=== PATIENT | male | born 1975 ===

== ENCOUNTER 2018-03-14 11:43 | Emergency (ER) | payer SELFPAY ==
[2018-03-14 11:53] VITALS: BP 143/88
[2018-03-14] MEDS ORDERED: Tetan/Diph/Pertus SYR(Tdap)* 0.5 ML SYR(BOOSTRIX) use SYR IM ONE (12:02)
--- NOTE | 2018-03-14 12:02 | UC ---
Laceration HPI - HPI Summary HPI Summary: 42 yo male presents with right middle finger laceration sustained about 30min [employer] while at work. 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 Unsure date of last tetanus. Able to move finger without difficulty. Mild pain. - History Of Current Complaint Chief Complaint: UCLaceration Stated Complaint: FINGER INJURY Time Seen by Provider: 03/14/18 12:02 Hx Obtained From: Patient Laceration Location: Finger Mechanism Of Injury: Blunt Trauma Onset/Duration: Sudden Onset Severity: Mild Pain Intensity: 1 Pain Scale Used: 0-10 Numeric Related History: Occupational Injury - Allergies/Home Medications Allergies/Adverse Reactions: Allergies Allergy/AdvReac Type Severity Reaction Status Date / Time iodine Allergy Hives Verified 03/14/18 11:54 Home Medications: Home Medications NK [No Home Medications Reported] 03/14/18 [History Confirmed 03/14/18] PMH/Surg Hx/FS Hx/Imm Hx - Additional Past Medical History Additional PMH: None Previously Healthy: Yes - Surgical History Surgical History: Yes Surgery Procedure, Year, and Place: appy,septal defect - Family History Known Family History: Positive: None - Social History Occupation: Employed Full-time Lives: With Family Alcohol Use: Rare Substance Use Type: None Smoking Status (MU): Never Smoked Tobacco Review of Systems Constitutional: Negative Skin: Other - Laceration right middle finger Respiratory: Negative Cardiovascular: Negative Neurovascular: Negative Musculoskeletal: Negative Neurological: Negative Psychological: Negative All Other Systems Reviewed And Are Negative: Yes Physical Exam - Summary Physical Exam Summary: GENERAL: NAD. WDWN. No pain distress. SKIN: Right middle finger MCP there is a 1.5cm linear laceration with exposed subcutaneous fat. No tendon involvement. NECK: Supple. Nontender. No lymphadenopathy. CHEST: No accessory muscle use. Breathing comfortably and in no distress. CV: RRR. Without m/r/g. MSK: FROM right hand and all fingers. NEURO: Alert. CN II-XII grossly intact. PSYCH: Age appropriate behavior. Triage Information Reviewed: Yes Vital Signs: Initial Vital Signs Temp 97.6 F 03/14/18 11:50 Pulse 84 03/14/18 11:50 Resp 18 03/14/18 11:50 BP 143/88 03/14/18 11:50 Pulse Ox 99 03/14/18 11:50 Laceration Repair - Laceration Repair 1 Description: Linear Laceration Size After Repair: Length (cm) - 1.5 Modified For Repair: No Type Injection: Local Anesthesia Used: 2.0% Lido Cleansing Completed Via Routine Prep: Yes Closure Material: Sutures - 5-0 FIVE Closure Method: Single Layer Suture Of: Skin Suture Type: Nylon Laceration Course/Dx - Course/Dx Course Of Treatment: A time out was performed, witnessed, and signed. The area was irrigated with 250mL sterile saline. 2mL of 2% lidocaine without epi was administered and good anesthetization was achieved. In the usual sterile fashion , FIVE 5-0 nylon interrupted sutures were placed. The wound was bandaged with telfa. Pt tolerated procedure well. tdap was updated today - Differential Dx - Laceration/Wound Provider Diagnoses: Laceration right hand Discharge - Sign-Out/Discharge Documenting (check all that apply): Discharge/Admit/Transfer - Discharge Plan Condition: Stable Disposition: HOME Patient Education Materials: Care For Your Stitches (ED) Referrals: No Primary Care Phys,NOPCP [Primary Care Provider] - Additional Instructions: If you develop a fever, shortness of breath, chest pain, new or worsening symptoms - please call your PCP or go to the ED. Your blood pressure was high at todays visit. Please see your primary provider within 4 weeks for recheck and re-evaluation. 1) Please keep the area bandaged, clean, dry, and intact for the next 24- 48hours. 2) If you develop a fever, colored or thick discharge, increased pain or swelling - please call your PCP or go to the ED. 3) Please return in 10 days to have your FIVE sutures removed. - Billing Disposition and Condition Condition: STABLE Disposition: Home
[2018-03-14] MEDS ORDERED: Lidocaine 2% PF * 5 ML VIAL INJ ONE (12:08)
== END 2018-03-14 12:46 | disposition home or self-care (01) ==
LOC: UCEAST 11:43
DX: S61.411A Laceration without foreign body of right hand, initial encounter (principal); Z23 Encounter for immunization; Z88.8 Allergy status to other drugs, medicaments and biological substances; W11.XXXA Fall on and from ladder, initial encounter; Y93.89 Activity, other specified; Y92.9 Unspecified place or not applicable
CPT/HCPCS: 12001; 90471; 90715; 99201; G0463

== ENCOUNTER 2018-03-23 18:25 | Emergency (ER) | payer SELFPAY ==
[2018-03-23 18:37] VITALS: BP 138/92
--- NOTE | 2018-03-23 18:49 | UC ---
Brendan Doshi Rebecca, scribed for Alberta Crooks MD on 03/23/18 at 1841 . Skin Complaint HPI - HPI Summary HPI Summary: Pt is a 42 y/o M who presents to [facility] [place] for removal of stitches. On 03/14, the pt fell off a ladder and hit his finger on a piece of metal, causing a laceration to the right 3rd finger. Since injury, the pt's pain has been controlled, ranked 0/10 on triage. Did not take any pain medication with stitches. Denies any symptoms. Tetanus UTD, was given on 03/14 when he presented to [facility] [place] for laceration repair. Injury occurred while at work. - History of Current Complaint Chief Complaint: [facility] Time Seen by Provider: 03/23/18 18:28 Stated Complaint: STITCHES REMOVED Hx Obtained From: Patient, Medical Records Onset/Duration: Other - Injury on 03/14 (9 days ago) Skin Exposure Onset/Duration: Days Ago - 9 days Current Severity: None Pain Intensity: 0 Pain Scale Used: 0-10 Numeric Location: Hand (Right) - 3rd finger Aggravating Factor(s): Nothing Alleviating Factor(s): Nothing - Allergy/Home Medications Allergies/Adverse Reactions: Allergies Allergy/AdvReac Type Severity Reaction Status Date / Time iodine Allergy Hives Verified 03/23/18 18:37 Review of Systems Constitutional: Negative Skin: Other - Laceration on 3rd middle finger - stitch removal Eyes: Negative ENT: Negative Respiratory: Negative Cardiovascular: Negative Gastrointestinal: Negative Genitourinary: Negative Motor: Negative Neurovascular: Negative Musculoskeletal: Negative Neurological: Negative Psychological: Negative All Other Systems Reviewed And Are Negative: Yes PMH/Surg Hx/FS Hx/Imm Hx - Additional Past Medical History Additional PMH: NEGATIVE PMHx: CAD, HTN, DM - Surgical History Surgical History: Yes Surgery Procedure, Year, and Place: appy,septal defect - Family History Known Family History: Positive: Diabetes - Social History Alcohol Use: Occasionally Substance Use Type: None Smoking Status (MU): Never Smoked Tobacco Physical Exam - Summary Physical Exam Summary: Vital Signs Reviewed: Yes A+Ox3, no distress Eyes: Conjunctiva Clear ENT: Hearing grossly normal neck: supple Respiratory: Positive: No respiratory distress, No accessory muscle use Cardiovascular: skin color reflect adequate perfusion Musculoskeletal Exam: WILDER x 4 without difficulty Neurological: Positive: Alert, ambulatory without difficulty Psychological: Positive: Normal Response To Family Skin: Positive: no rash, no ecchymosis sutures right finger c/d/i well appeairng Triage Information Reviewed: Yes Vital Signs: Initial Vital Signs Temp 99.0 F 03/23/18 18:33 Pulse 96 03/23/18 18:33 Resp 18 03/23/18 18:33 BP 138/92 03/23/18 18:33 Pulse Ox 99 03/23/18 18:33 Course/Dx - Course Course Of Treatment: Patient medications reviewed this visit. pt presents for suture removal. 5 simple interrupted c/d/i well healed. removed without difficult. d/w pt wound care. comfortable with plan - Diagnoses Provider Diagnoses: suture removal Discharge - Sign-Out/Discharge Documenting (check all that apply): Discharge/Admit/Transfer - Discharge - Discharge Plan Condition: Stable Disposition: HOME Patient Education Materials: Stitches Removal (ED) Referrals: No Primary Care Phys,NOPCP [Primary Care Provider] - Additional Instructions: - okay to alternate ibuprofin (advil, motrin) and tylenol every 3hours as needed for pain -Anticipate increased discomfort over the next several hours as the numbing medication wears off -apply a thin layer of antibiotic ointment (neosporin, polysporin) 2-3 times a day with a bandaid Continue to cover until final scab has fallen off Continue to monitor your wound for signs of infeciton - reddness, red streaking , odor, green drainage - Contact your doctor or return here with questions or concerns - Billing Disposition and Condition Condition: STABLE Disposition: Home The documentation as recorded by the Brendan triplett Rebecca accurately reflects the service I personally performed and the decisions made by Valeriy wang Laura, MD.
== END 2018-03-23 19:02 | disposition home or self-care (01) ==
LOC: UCEAST 18:25
DX: S61.212D Laceration without foreign body of right middle finger without damage to nail, subsequent encounter (principal); W11.XXXD Fall on and from ladder, subsequent encounter; Z91.09 Other allergy status, other than to drugs and biological substances
CPT/HCPCS: 99212; G0463

== ENCOUNTER 2018-04-28 12:53 | Emergency (ER) | payer SELFPAY ==
[2018-04-28 13:19] VITALS: BP 133/95
--- NOTE | 2018-04-28 14:16 | UC ---
Skin Complaint HPI - HPI Summary HPI Summary: Patient's a 42-year-old male presenting to the with a concern over the middle MCP joint on the dorsum of the hand with a healing laceration wound which was sutured now expelling a small black cotton piece. He is concerned over an infection or a foreign body. Denies any pain, full range of motion intact. - History of Current Complaint Chief Complaint: UCSkin Time Seen by Provider: 04/28/18 13:24 Stated Complaint: WOUND RECHECK Hx Obtained From: Patient Onset/Duration: Sudden Onset Skin Exposure Onset/Duration: Hours Ago Timing: Constant Onset Severity: Moderate Current Severity: Moderate Pain Intensity: 0 Pain Scale Used: 0-10 Numeric Location: Other - MCP joint of R middle finger Aggravating Factor(s): Nothing Alleviating Factor(s): Nothing - Allergy/Home Medications Allergies/Adverse Reactions: Allergies Allergy/AdvReac Type Severity Reaction Status Date / Time iodine Allergy Hives Verified 04/28/18 13:20 Review of Systems Constitutional: Negative Skin: Other - MCP joint of R middle finger with small black thread ENT: Negative Cardiovascular: Negative Neurovascular: Negative Musculoskeletal: Negative Neurological: Negative Is Patient Immunocompromised?: No All Other Systems Reviewed And Are Negative: Yes PMH/Surg Hx/FS Hx/Imm Hx Previously Healthy: Yes - Surgical History Surgical History: Yes Surgery Procedure, Year, and Place: Appy, Septal defect - Family History Known Family History: Positive: None, Diabetes - Social History Occupation: Employed Full-time Alcohol Use: None Substance Use Type: None Smoking Status (MU): Never Smoked Tobacco Physical Exam Triage Information Reviewed: Yes Appearance: Well-Appearing, No Pain Distress, Well-Nourished Vital Signs: Initial Vital Signs Temp 98.1 F 04/28/18 13:15 Pulse 93 04/28/18 13:15 Resp 18 04/28/18 13:15 BP 133/95 04/28/18 13:15 Pulse Ox 98 04/28/18 13:15 ENT Exam: Normal Respiratory Exam: Normal Respiratory: Positive: Chest non-tender Cardiovascular Exam: Normal Musculoskeletal Exam: Normal Musculoskeletal: Positive: Strength Intact Psychological Exam: Normal Psychological: Positive: Normal Response To Family Skin: Positive: Other - MCP joint of R middle finger wiht small black thread Course/Dx - Course Course Of Treatment: Small piece of thread from the MCP joint dislodged with tweezers. Appears to be residual thread from suture material. There is no signs of infection. - Diagnoses Provider Diagnoses: Foreign body mcp joint Discharge - Sign-Out/Discharge Documenting (check all that apply): Patient Departure - Discharge Plan Condition: Stable Disposition: HOME Referrals: No Primary Care Phys,NOPCP [Primary Care Provider] - - Billing Disposition and Condition Condition: STABLE Disposition: Home Attestation Statement User Type: Provider - I was available for consult. This patient was seen by the PAULO. The patient was not presented to, seen by, or examined by me. -Ashli
== END 2018-04-28 13:43 | disposition home or self-care (01) ==
LOC: UCEAST 12:53
DX: S60.459A Superficial foreign body of unspecified finger, initial encounter (principal); X58.XXXA Exposure to other specified factors, initial encounter; Y92.9 Unspecified place or not applicable
CPT/HCPCS: 99211; G0463